=== PATIENT | female | born 1990 | race Caucasian/White ===

== ENCOUNTER 2021-08-04 04:06 | Inpatient (IN) | payer OTHER ==
[2021-08-02 12:45] VITALS: BMI 32.2
[2021-08-04] MEDS ORDERED: ceFAZolin SODIUM 1 GM VIAL ONE ×4 (06:38→23:12)
[2021-08-04] MEDS ORDERED: CEFAZOLIN 2 GM in DEXTROSE 5%-WATER - 100 ML IVPB ONE (07:00)
[2021-08-04] MEDS ORDERED: BUPIVACAINE LIPOSOME/PF (EXPAREL) 266 MG/20 ML VIAL ONE (07:06)
[2021-08-04] MEDS ORDERED: BUPIVACAINE HCL/PF 0.5% (5MG/ML) 10 ML VIAL ONE (07:06)
[2021-08-04] MEDS ORDERED: MIDAZOLAM HCL 2 MG/2 ML SINGLE DOSE VIAL ONE ×2 (07:07)
[2021-08-04] MEDS ORDERED: VASOPRESSIN 20 UNITS/ML VIAL IV ONE (07:09)
[2021-08-04] MEDS ORDERED: ROCURONIUM BROMIDE 50 MG/5 ML SYRINGE ONE (07:25)
[2021-08-04] MEDS ORDERED: NEOSTIGMINE METHYLSULFATE 0.5 MG/ML - 10 ML MDV ONE (07:26)
[2021-08-04] MEDS ORDERED: PROPOFOL 20 ML ONE ×3 (07:26)
[2021-08-04] MEDS ORDERED: SUGAMMADEX SODIUM 200 MG/2 ML VIAL ONE (07:31)
[2021-08-04] MEDS ORDERED: HEPARIN NA (PORCINE) 5,000 UNITS/ML 1ML VIAL ONE ×2 (07:40→07:42)
[2021-08-04] MEDS ORDERED: TRANEXAMIC ACID 1000 MG/10 ML VIAL ONE ×2 (08:20→08:58)
[2021-08-04] MEDS ORDERED: ceFAZolin SODIUM 1 GM VIAL IVPB ONE (08:31)
[2021-08-04] MEDS ORDERED: ACETAMINOPHEN 1000 MG/100 ML BAG IVPB ONE ×2 (08:55→11:33)
[2021-08-04] MEDS ORDERED: oxyCODONE HCL 5 MG TABLET PO PRN ×2 (08:55)
[2021-08-04] MEDS ORDERED: ONDANSETRON 4 MG/2 ML VIAL IVPUSH PRN ×2 (08:55→10:39)
[2021-08-04] MEDS ORDERED: LIDOCAINE HCL/PF 2% SDV 5ML VIAL ONE (08:58)
[2021-08-04] MEDS ORDERED: DEXAMETHASONE SOD PHOSPHATE 4 MG/1 ML VIAL ONE (08:58)
[2021-08-04] MEDS ORDERED: GLYCOPYRROLATE 0.2 MG/1 ML VIAL ONE (08:58)
[2021-08-04] MEDS ORDERED: SIMETHICONE 80 MG TAB.CHEW (FP) PO PRN (10:39)
[2021-08-04] MEDS ORDERED: BISACODYL 5 MG TABLET.DR (FP) PO PRN (10:39)
[2021-08-04] MEDS ORDERED: IBUPROFEN 800 MG/8 ML IJ IVPB PRN (10:39)
[2021-08-04] MEDS ORDERED: DOCUSATE SODIUM 100 MG CAPSULE (FP) PO PRN (10:39)
[2021-08-04] MEDS ORDERED: ACETAMINOPHEN INJECTION 100 ML IVPB ONE (11:31)
[2021-08-04] MEDS ORDERED: FLU VACC QS2021-22(6MOS UP)/PF 60 MCG/0.5 ML SYRINGE IM ONE (12:00)
[2021-08-04] MEDS: ACETAMINOPHEN 500 MG TABLET (FP) PO SCH ×2 (15:08→21:13)
[2021-08-04] MEDS ORDERED: DEXTROSE 5%-WATER - 50 ML IVPB ONE ×2 (15:44→23:12)
[2021-08-04] MEDS: CEFAZOLIN 1 GM in DEXTROSE 5%-WATER - 1 GM/50 ML IVPB IVPB SCH ×2 (15:54→23:17)
[2021-08-04] MEDS: KETOROLAC TROMETHAMINE 30 MG/1 ML VIAL IVPUSH SCH ×3 (15:55→19:34)
[2021-08-04] MEDS: LACTATED RINGERS SOLUTION 1,000 ML IV SCH (21:35)
[2021-08-05] MEDS: ACETAMINOPHEN 500 MG TABLET (FP) PO SCH ×2 (03:05→08:26)
[2021-08-05] MEDS: LACTATED RINGERS SOLUTION 1,000 ML IV SCH (06:03)
[2021-08-05 07:55] LABS: HEMATOCRIT 36.2 % (32.4-45.2); HEMOGLOBIN 12.1 GM/dL (10.7-15.3); MCH 31.7 pg (25.7-33.7); MCHC 33.5 g/dl (32.0-36.0); MEAN CELL VOLUME 94.7 fl (80-96); MEAN PLT VOLUME 8.3 fl (7.5-11.1); PLATELET COUNT 346 10^3/uL (134-434); RBC 3.82 M/mm3 (3.60-5.2); RDW 12.8 % (11.6-15.6); WHITE BLOOD COUNT 13.2 K/mm3 (4.0-10.0)
[2021-08-05 08:19] LABS: CALCIUM 8.3 mg/dL (8.5-10.1)
[2021-08-05] MEDS ORDERED: DEXTROSE 5%-WATER - 50 ML IVPB ONE (08:19)
[2021-08-05] MEDS ORDERED: ceFAZolin SODIUM 1 GM VIAL ONE (08:20)
[2021-08-05 08:22] LABS: CREATININE 0.9 mg/dL (0.55-1.3)
[2021-08-05 08:23] LABS: BLOOD UREA NITROGEN 8.3 mg/dL (7-18)
[2021-08-05] MEDS: CEFAZOLIN 1 GM in DEXTROSE 5%-WATER - 1 GM/50 ML IVPB IVPB SCH (08:26)
[2021-08-05] MEDS ORDERED: ENOXAPARIN NA (PORCINE) 40 MG/0.4 ML DISP.SYRIN SQ SCH (10:00)
[2021-08-05] MEDS ORDERED: ASCORBIC ACID 500 MG TABLET (FP) PO SCH (10:00)
[2021-08-05] MEDS ORDERED: CHOLECALCIFEROL (VIT D3) 1,000 UNIT (25 MCG) TABLET PO SCH (10:00)
[2021-08-05] MEDS ORDERED: PATIENT'S OWN MEDICATION (NON-FORMULARY) (Zinc Gluconate [Zinc] 50 MG Tablet) PO SCH (10:00)
[2021-08-05 11:26] VITALS: BP 116/55; PULSE 69; TEMP 98.3
== END 2021-08-05 12:00 | disposition home or self-care (01) | DRG 519 ==
LOC: JASUSAT 04:06 → J2C 06:54 → EDSTATUS 07:30 → J3W 12:31
PROVIDERS: ADMIT Obstetrics & Gynecology; ATTEND Obstetrics & Gynecology
PROC: 0UB90ZZ Excision of Uterus, Open Approach (ICD-10-PCS; principal; 2021-08-04 07:30)
DX: D25.1 Intramural leiomyoma of uterus (principal); D25.0 Submucous leiomyoma of uterus
CPT/HCPCS: 36415; 80048; 81025; 85027; 88307-TC; 90686; 94010; 94760; G0008; J1644

== ENCOUNTER 2022-02-05 11:26 | Emergency (ER) | payer OTHER ==
[2022-02-05 11:33] VITALS: BP 105/68; PULSE 70; RESP 18; TEMP 97.4; BMI 29.2
[2022-02-05] MEDS ORDERED: KETOROLAC TROMETHAMINE 30 MG/1 ML VIAL IM ONE (12:49)
[2022-02-05] MEDS ORDERED: CYCLOBENZAPRINE HCL 10 MG TABLET (FP) PO ONE (12:50)
[2022-02-05] MEDS ORDERED: LIDOCAINE 5% TOPICAL PATCH TP ONE (12:50)
[2022-02-05] MEDS ORDERED: KETOROLAC TROMETHAMINE 30 MG/1 ML VIAL ONE (12:54)
[2022-02-05] MEDS ORDERED: CYCLOBENZAPRINE HCL 10 MG TABLET (FP) ONE (12:54)
[2022-02-05] MEDS ORDERED: LIDOCAINE 5% TOPICAL PATCH ONE (12:54)
[2022-02-05] MEDS ORDERED: LIDOCAINE PATCH REMOVAL MC ONE (22:00)
== END 2022-02-05 14:42 | disposition home or self-care (01) ==
LOC: JERFT 11:26
PROC: 3E0233Z Introduction of Anti-inflammatory into Muscle, Percutaneous Approach (ICD-10-PCS; principal; 2022-02-05)
DX: M54.50 Low back pain, unspecified (principal)
CPT/HCPCS: 96372; 99283-25

== ENCOUNTER → 2022-08-23 | Day surgery (SDC) | payer OTHER | END | disposition home or self-care (01) | LOC: JMAMMO-SUR 12:44 | PROVIDERS: ATTEND Family Medicine | PROC: 0H9V3ZX Drainage of Bilateral Breast, Percutaneous Approach, Diagnostic (ICD-10-PCS; principal; 2022-08-23) | DX: D24.2 Benign neoplasm of left breast (principal); D24.1 Benign neoplasm of right breast | CPT/HCPCS: 19083; 19084; 87899; 88305-TC; A4648 ==